=== PATIENT | male | born 1965 | race Caucasian/White ===

== ENCOUNTER → 2016-06-19 | Outpatient (CLI) | payer MEDICARE, MEDICAID ==
[~2016-06-19] MED LIST: CATHETER FLUSH 10 ML SYR IV PRN; IOHEXOL 350 MG/ML 100 ML (OMNIPAQUE 350) VIAL IV ONE; NS 100 ML (IVPB) BAG IV ONE
[2016-06-19 11:05] LABS: BLOOD UREA NITROGEN 17 MG/DL (7-18); BUN/CREATININE RATIO 20; CREATININE SERUM 0.86 MG/DL (0.60-1.30); GFR ESTIMATED > 60
--- NOTE | 2016-06-19 18:03 | Diagnostic Imaging Report ---
INDICATION: R1.09, K5.29. Abdominal bleeding, previous appendectomy, stomach pain. FINDINGS: CT scanning of the abdomen down to the sacroiliac joints was obtained with rapid bolus administration of intravenous contrast. MIP reformats were obtained. Delayed images were also performed. The lung bases are clear. The liver, gallbladder, spleen, pancreas, adrenal glands and kidneys appear normal. A few diverticula are present within the colon. There may be some mild thickening of the sigmoid colon. This could be due to a nonspecific colitis. The takeoff of the celiac axis, SMA, renal arteries and HA appear normal. Some mild plaque is seen in the distal aorta and proximal iliac vessels. No stenosis present. IMPRESSION: 1. There are no vascular abnormalities. 2. There is mild thickening of the sigmoid colon suggestive of mild enteritis. Dictated by: Dictated on workstation # [id number]
--- NOTE | 2016-06-19 18:20 | Diagnostic Imaging Report ---
PROCEDURE: US Bilateral lower extremity arterial. TECHNIQUE: Multiple real-time grayscale images are obtained through both lower extremity arterial systems with color Doppler imaging and color Doppler spectral analysis. INDICATION: Leg pain. FINDINGS: Grayscale images demonstrate mild atherosclerotic plaque in the femoropopliteal segments bilaterally. Color Doppler demonstrates patency of the common femoral, profunda, SFA, popliteal and posterior tibial and dorsalis pedis arteries bilaterally. The proximal aspect of the anterior tibial artery is not seen. There is triphasic waveform throughout. There is a normal range of velocity seen bilaterally with no ultrasound evidence of focal significant stenosis. IMPRESSION: Mild atherosclerotic plaque is seen. No ultrasound evidence of focal high-grade stenosis. Dictated by: Dictated on workstation # [id number]
== END ==
LOC: RAD 10:30
PROVIDERS: ATTEND Internal Medicine Gastroenterology
DX: I73.9 Peripheral vascular disease, unspecified (principal); K52.9 Noninfective gastroenteritis and colitis, unspecified; M79.604 Pain in right leg; M79.605 Pain in left leg
CPT/HCPCS: 36415; 74175; 82565; 84520; 93925

== ENCOUNTER → 2016-08-08 | Outpatient (CLI) | payer MEDICARE, MEDICAID ==
[2016-08-08 11:59] LABS: BLOOD UREA NITROGEN 14 MG/DL (7-18); BUN/CREATININE RATIO 16; CREATININE SERUM 0.86 MG/DL (0.60-1.30); GFR ESTIMATED > 60
--- NOTE | 2016-08-08 16:07 | Diagnostic Imaging Report ---
PROCEDURE: CT abdomen and pelvis with and without contrast. TECHNIQUE: Precontrast acquisitions were acquired through the abdomen and pelvis. Multiple contiguous axial images were obtained through the abdomen and pelvis after the administration of intravenous contrast. INDICATION: Right-sided abdominal pain. Pain with urination. COMPARISON: 06/19/2016 FINDINGS: Included views of the lung bases are clear. CT ABDOMEN: Small bowel loops are nondistended. Normal appendix cannot be adequately identified, but there is no pericecal inflammation. There is colonic diverticulosis, but no CT evidence of acute diverticulitis. There may be punctate nonobstructive renal calculus on the right. No calculi are seen within either ureter. Additionally, there is no hydroureteronephrosis or other evidence of obstruction. There are punctate hypoenhancing foci within the inferior pole of the right kidney. These may represent small cysts, but are too small to adequately characterize based on this exam. Otherwise, no solid enhancing renal mass type lesions are identified. The spleen, adrenal glands, pancreas, and liver have a normal appearance. There is no loculated fluid collection, free fluid or free air within the abdomen. No abnormal mesenteric or retroperitoneal adenopathy is seen. There is mild scattered calcified aortic and arterial atherosclerosis. Bony structures show no acute abnormalities. CT PELVIS: Urinary bladder is grossly unremarkable. There is no loculated fluid collection, free fluid or free air within the pelvis. No abnormal lymph nodes are seen. Bony structures show no acute abnormalities. IMPRESSION: 1. Perhaps punctate nonobstructive right renal calculus. No ureteral calculi or evidence of obstruction is seen on either side. 2. Punctate hypoenhancing rounded foci within the inferior pole of the right kidney. Again, these may be on the basis of small cysts, but are incompletely characterized on this exam. 3. No other acute abnormalities are seen within the abdomen or pelvis. 4. Colonic diverticulosis, but no CT evidence of acute diverticulitis. Dictated by: Dictated on workstation # [id number]
== END ==
LOC: RAD 11:02
PROVIDERS: ATTEND Internal Medicine Gastroenterology
DX: R31.9 Hematuria, unspecified (principal); E29.1 Testicular hypofunction; K57.90 Diverticulosis of intestine, part unspecified, without perforation or abscess without bleeding
CPT/HCPCS: 36415; 74178; 82565; 84520